=== PATIENT | female | born 2000 | race Caucasian/White ===

== ENCOUNTER 2018-08-13 07:18 | Emergency (ER) | payer SELFPAY ==
[2018-08-13 07:25] VITALS: BP 126/70; PULSE 67; RESP 16; TEMP 37; O2SAT 98
--- NOTE | 2018-08-13 08:10 | W.ED.GENAD ---
Discharge Plan Disposition Patient Disposition: HOME Discharge Details Chief Complaint: DentalOral Clinical Impression: Pain, dental Primary Care Provider: Alda Robin V ED Provider: Sincere Higuera Home Meds and New Rx's Prescriptions: New penicillin V potassium 500 mg tablet 500 mg PO QID Qty: 27 RF: 0 Continue norgestimate-ethinyl estradiol [Sprintec (28)] 1 EACH tablet 1 tab PO DAILY RF: 0 multivitamin 1 EACH capsule 1 cap PO DAILY RF: 0 Discharge Instructions Instructions: Toothache (ED) Additional Instructions: Please take antibiotic as prescribed. Take Tylenol 650 mg every 6 hours as needed for pain You should be seen by a dentist as soon as possible. You may need to have your wisdom teeth removed. Return to the emergency department for any worsening or new concerning symptoms. Stand Alone Forms: Work Release Referrals: Alda Robin MD [Primary Care Provider] - Medical Decision Making 18yo f here with left upper molar and TMJ pain. Suspect impacted wisdom tooth. Plan to treat with penicillin for potential infection. Tylenol for pain. Advised follow-up dentist margarita. HPI General Mode of arrival: ambulatory. Date/Time Provider Initiated Documentation: 08/13/18 07:43. Limitations to Documentation: no limitations. Information obtained by: patient. HPI Narrative: 18-year-old female here with dental pain. Patient notes pain in her left upper molar and face near her TMJ. Pain started 2 months ago. Pain much worse over the past 3 days. No associated fever. She does note that when she lies on that side of her face seems to swell. No associated headache. She is scheduled to see a dentist for wisdom tooth extraction next month. Related Data Home Medications Medication Instructions Recorded Confirmed multivitamin 1 cap PO DAILY 01/12/18 08/13/18 norgestimate-ethinyl estradiol 1 tab PO DAILY 01/12/18 08/13/18 [Sprintec (28)] penicillin V potassium 500 mg PO QID #27 tab 08/13/18 Previous Rx's Medication Instructions Recorded penicillin V potassium 500 mg PO QID #27 tab 08/13/18 Allergies Allergy/AdvReac Type Severity Reaction Status Date / Time ibuprofen AdvReac Unverified 08/13/18 07:29 General Stated Complaint: DentalOral ROCIO: 4 Review of Systems Constitutional Denies fever(s) and Denies headache(s) ENT Reports as per HPI and Denies headache(s) Neurologic Denies headache(s) [facility] Social History Smoking/Tobacco Use Status: Never Exam Const General: healthy appearing and no acute distress Orientation: alert HENMT Ears: external ears normal and TM's normal bilaterally General nose exam: nares normal and no nasal discharge Face and sinus: sinuses nontender Mouth: moist mucous membranes Throat: posterior oropharynx normal Other: Tender left upper molar and posterior lateral to more with no fluctuance; able to open and close jaw with no trismus Neck Neck: no lymphadenopathy Resp Effort & Inspection: normal respiratory effort Cardio Rate: regular rate Rhythm: regular rhythm Heart Sounds: no murmurs Course Vital Signs Temperature 37 C 08/13/18 07:25 Pulse 67 08/13/18 07:25 Respiratory Rate 16 08/13/18 07:25 Blood Pressure 126/70 08/13/18 07:25 Pulse Oximetry 98 08/13/18 07:25 Temperature 37 C 08/13/18 07:25 Temperature Source Skin 08/13/18 07:25 Pulse 67 08/13/18 07:25 Respiratory Rate 16 08/13/18 07:25 Respiratory Effort Non-Labored 08/13/18 07:25 Blood Pressure 126/70 08/13/18 07:25 Blood Pressure Position Sitting 08/13/18 07:25 Pulse Oximetry 98 08/13/18 07:25 Oxygen Delivery Method Room Air 08/13/18 07:25 Oxygen Flow Rate 0 08/13/18 07:25 Pain Level 10 08/13/18 07:25
[2018-08-13] MEDS: Penicillin V POTASSIUM 500 MG TAB PO (08:20)
[2018-08-13] MEDS: Acetaminophen 325 MG TAB 650 MG PO (08:20)
--- NOTE | 2018-08-13 08:23 | ED.GENADUL_ITS ---
Discharge Plan Disposition Patient Disposition: HOME Discharge Details Chief Complaint: DentalOral Clinical Impression: Pain, dental Primary Care Provider: Alda Robin V ED Provider: Sincere Higuera Home Meds and New Rx's Prescriptions: New penicillin V potassium 500 mg tablet 500 mg PO QID Qty: 27 RF: 0 Continue norgestimate-ethinyl estradiol [Sprintec (28)] 1 EACH tablet 1 tab PO DAILY RF: 0 multivitamin 1 EACH capsule 1 cap PO DAILY RF: 0 Discharge Instructions Instructions: Toothache (ED) Additional Instructions: Please take antibiotic as prescribed. Take Tylenol 650 mg every 6 hours as needed for pain You should be seen by a dentist as soon as possible. You may need to have your wisdom teeth removed. Return to the emergency department for any worsening or new concerning symptoms. Stand Alone Forms: Work Release Referrals: Alda Robin MD [Primary Care Provider] - Medical Decision Making 18yo f here with left upper molar and TMJ pain. Suspect impacted wisdom tooth. Plan to treat with penicillin for potential infection. Tylenol for pain. Advised follow-up dentist margarita. HPI General Mode of arrival: ambulatory . Date/Time Provider Initiated Documentation: 08/13/18 07:43 . Limitations to Documentation: no limitations . Information obtained by: patient . HPI Narrative: 18-year-old female here with dental pain. Patient notes pain in her left upper molar and face near her TMJ. Pain started 2 months ago. Pain much worse over the past 3 days. No associated fever. She does note that when she lies on that side of her face seems to swell. No associated headache. She is scheduled to see a dentist for wisdom tooth extraction next month. Related Data Home Medications Medication Instructions Recorded Confirmed multivitamin 1 cap PO DAILY 01/12/18 08/13/18 norgestimate-ethinyl estradiol 1 tab PO DAILY 01/12/18 08/13/18 [Sprintec (28)] penicillin V potassium 500 mg PO QID #27 tab 08/13/18 Previous Rx's Medication Instructions Recorded penicillin V potassium 500 mg PO QID #27 tab 08/13/18 Allergies Allergy/AdvReac Type Severity Reaction Status Date / Time ibuprofen AdvReac Unverified 08/13/18 07:29 General Stated Complaint: DentalOral ROCIO: 4 Review of Systems Constitutional Denies fever(s) and Denies headache(s) ENT Reports as per HPI and Denies headache(s) Neurologic Denies headache(s) [facility] Social History Smoking/Tobacco Use Status: Never Exam Const General: healthy appearing and no acute distress Orientation: alert HENMT Ears: external ears normal and TM's normal bilaterally General nose exam: nares normal and no nasal discharge Face and sinus: sinuses nontender Mouth: moist mucous membranes Throat: posterior oropharynx normal Other: Tender left upper molar and posterior lateral to more with no fluctuance ; able to open and close jaw with no trismus Neck Neck: no lymphadenopathy Resp Effort & Inspection: normal respiratory effort Cardio Rate: regular rate Rhythm: regular rhythm Heart Sounds: no murmurs Course Vital Signs Temperature 37 C 08/13/18 07:25 Pulse 67 08/13/18 07:25 Respiratory Rate 16 08/13/18 07:25 Blood Pressure 126/70 08/13/18 07:25 Pulse Oximetry 98 08/13/18 07:25 Temperature 37 C 08/13/18 07:25 Temperature Source Skin 08/13/18 07:25 Pulse 67 08/13/18 07:25 Respiratory Rate 16 08/13/18 07:25 Respiratory Effort Non-Labored 08/13/18 07:25 Blood Pressure 126/70 08/13/18 07:25 Blood Pressure Position Sitting 08/13/18 07:25 Pulse Oximetry 98 08/13/18 07:25 Oxygen Delivery Method Room Air 08/13/18 07:25 Oxygen Flow Rate 0 08/13/18 07:25 Pain Level 10 08/13/18 07:25
== END 2018-08-13 08:20 | disposition home or self-care (01) ==
PROVIDERS: Emergency Provider Student in an Organized Health Care Education/Training Program; PCP Family Medicine
DX: K08.89 Other specified disorders of teeth and supporting structures (principal)
CPT/HCPCS: 99283

== ENCOUNTER 2020-09-24 04:53 | Outpatient (CLI) | payer OTHER, SELFPAY ==
[2020-09-24 10:50] LABS: Kit/Specimen SENT
[2020-09-24 10:58] LABS: Abs Immature Grans 0.04 10^3/uL (0.0-0.06); Absolute Basophil Count 0.02 10^3/uL (0.0-0.2); Absolute Eosinophil Count 0.07 10^3/uL (0.0-0.7); Absolute Lymphocyte Count 2.67 10^3/uL (1.2-3.4); Absolute Monocyte Count 0.34 10^3/uL (0.1-0.8); Basophils % 0.2; Eosinophils % 0.6; HCT 38.6 % (36.0-46.0); HGB 12.6 g/dL (11.2-15.7); Immature Grans % 0.4; Lymphocytes % 24.3; MCHC 32.6 % (32.0-36.0); MCV 85.8 fL (80-95); Monocytes % 3.1; Neutrophils % 71.4; Nucleated RBC 0 %; Platelet Count 235 10^3/uL (130-400); RDW-SD 40.4 fL
[2020-09-24 11:04] LABS: Glucose,1 Hr (Glucola) 127 mg/dL (80-140)
[2020-09-24 11:08] LABS: Absolute Neutrophil Count 7.85 10^3/uL (1.2-6.7)
[2020-09-24 12:02] LABS: TSH (W/Ref FT4) 1.56 uIU/mL (0.36-3.74)
[2020-09-25 14:19] LABS: Syphilis Total Ab w/Reflex Nonreactive (Nonreactive)
[2020-09-27 10:22] LABS: Varicella IgG Antibody Positive (See Note)
[2020-09-27 10:27] LABS: Rubella IgG Ab (UVM) Positive (See Note)
[2020-09-27 10:44] LABS: HIV-1/2 Ag & Ab Screen Negative (Negative)
[2020-09-27 10:54] LABS: Hepatitis C Ab w Rflx HCV PCR Negative (Negative)
[2020-09-27 13:18] LABS: Hepatitis B Surface Ag Negative (Negative)
[2020-09-30 12:06] LABS: Specimen WB Whole Blood
[2020-10-01 17:11] LABS: Result Summary NEGATIVE; Specimen WB Whole Blood
== END 2020-09-24 05:13 ==
PROVIDERS: PCP Family Medicine; Visit Provider Advanced Practice Midwife
DX: Z34.91 Encounter for supervision of normal pregnancy, unspecified, first trimester (principal); Z11.4 Encounter for screening for human immunodeficiency virus [HIV]; Z11.59 Encounter for screening for other viral diseases; Z01.84 Encounter for antibody response examination
CPT/HCPCS: 36415; 81329; 82950; 86787; 86803; 86850; 86900; 86901; 87340; 87389; 81220; 84443; 85025; 86762; 86780

== ENCOUNTER 2020-09-24 12:29 | Outpatient (REF) | payer OTHER, SELFPAY ==
--- NOTE | 2020-09-24 10:10 | PAPFT_PTH ---
PATIENT: Suyapa Hillman LOC: [facility] U#:[id number] AGE/SX: 20/F ROOM: RE09/24/[address]: Sallie Vizcarra RN : 2000 BED: DIS: 09/24/2020 SPEC #: [id number] RECD: 09/24/20 13:21 STATUS: ANDRES REQ #: [id number] SPIKE: 09/24/20 10:[address]: Sallie Vizcarra DEPT: PENDING SALE TO [facility] Cytology RECD BY: Kim Suarez ENTERED: 09/24/20 13:22 SP TYPE: PAPFT OTHR DR: Alda Robin V Tissues: 1 - CX/ENDOCX FOR PAP SMEARS Procedures: PAP THIN PREP/[facility] Screening Comments: [id number]
[2020-09-24 14:07] LABS: *AMPHETAMINES SCREEN URINE Negative (Negative); *BARBITURATES SCREEN URINE Negative (Negative); *BENZODIAZEPINES SCREEN URINE Negative (Negative); Cannabinoids THC Negative (Negative); Cocaine Screen,Urine Negative (Negative); METHADONE URINE SCREEN Negative (Negative); OPIATES URINE SCREEN Negative (Negative)
[2020-09-24 14:08] LABS: Tricyclic Antidepressants Negative (Negative)
[2020-09-27 15:34] LABS: Chlamydia Result Negative (Negative); GC Result Negative (Negative)
[2020-10-01 17:00] LABS: Buprenorphine Negative; Norbuprenorphine Negative
== END 2020-09-24 12:49 ==
LOC: LBN 12:29
PROVIDERS: PCP Family Medicine; Visit Provider Advanced Practice Midwife
DX: Z34.91 Encounter for supervision of normal pregnancy, unspecified, first trimester (principal); Z11.3 Encounter for screening for infections with a predominantly sexual mode of transmission; Z12.4 Encounter for screening for malignant neoplasm of cervix
CPT/HCPCS: 80307; 87491; 87591; 88142; 87086

== ENCOUNTER 2020-11-15 01:59 | Outpatient (CLI) | payer OTHER, SELFPAY ==
--- NOTE | 2020-11-15 06:45 | DI.US_ITS ---
EXAM: US OB 2-3 TRIMESTER CLINICAL HISTORY: routine pnc,Z34.90. TECHNIQUE: Transabdominal obstetrical ultrasound performed. COMPARISON: No exams were available for comparison FINDINGS: Transabdominal obstetrical ultrasound performed. FINDINGS: Number of fetuses: One. position: Varied positions throughout the examination. heart rate: 144 bpm. Placental grade: 0 Placental location: Posterior. No evidence of previa. BIOMETRIC DATA: BPD: 3.8cm HC: 14.6cm AC: 11.9cm FL: 2.6cm Cisterna Magna: 1.8 mm Cerebellum: 1.76 cm Composite Age: 17 weeks 5 days EDC by US: 04/20/2021 Amniotic fluid index: Amount of fluid is within normal limits. ANATOMICAL SURVEY: Four-chambered heart: Not visualized. LVOT: Not visualized. RVOT: Not visualized. Left-sided stomach: Unremarkable. urinary bladder: Unremarkable. Bilateral kidneys: Unremarkable. Three-vessel cord: Unremarkable. Cord insertion: Unremarkable. Posterior fossa:Not visualized adequately. ventricles: Unremarkable. nose: Not visualized. lips: Not visualized. palate: Unremarkable. spine: Unremarkable. Two arms and two legs: Unremarkable. IMPRESSION: 1. Single live intrauterine gestation as above. 2. anatomic evaluation was limited in part due to patient body habitus. 3. The patient is scheduled to return 11/22/2020 to complete the anatomic evaluation. DATA REPOSITORY:
== END 2020-11-15 02:19 ==
PROVIDERS: PCP Family Medicine; Visit Provider Advanced Practice Midwife
DX: Z34.92 Encounter for supervision of normal pregnancy, unspecified, second trimester (principal)
CPT/HCPCS: 76805

== ENCOUNTER 2020-11-22 01:24 | Outpatient (CLI) | payer OTHER, SELFPAY ==
--- NOTE | 2020-11-22 | DI.US_ITS ---
EXAM: US OB F/U FACIAL/LVOT/RVOT CLINICAL HISTORY: HEART POST FOSSA NOSE LIPS, F/U SURVEY. TECHNIQUE: Transabdominal obstetrical ultrasound performed. COMPARISON: US US OB 2-3 TRIMESTER W MOD from 11/15/2020 FINDINGS: Transabdominal obstetrical ultrasound performed. Examination was limited due to the lie of the fetus . The posterior fossa and cardiac structures were not visualized adequately. The palate was visuali zed and is grossly unremarkable. There is limited visualization of the nose and lips. The fetus is in the cephalic presentation. The placenta is posterior without evidence of previa. Fe lorin heart rate is 153 beats per minute. IMPRESSION: 1. Single live intrauterine gestation as above. 2. The face, heart and posterior fossa could not be evaluated sonographically due to the lie of the fetus. DATA REPOSITORY:
== END 2020-11-22 01:25 | disposition home or self-care (01) ==
LOC: DI 01:24
PROVIDERS: PCP Family Medicine; Visit Provider Advanced Practice Midwife
DX: Z34.92 Encounter for supervision of normal pregnancy, unspecified, second trimester (principal)
CPT/HCPCS: 76815

== ENCOUNTER 2021-01-14 02:03 | Outpatient (CLI) | payer OTHER, SELFPAY ==
[2021-01-14 09:49] LABS: HCT 37.2 % (36.0-46.0); HGB 12.4 g/dL (11.2-15.7); MCH 29.2 pg (27.0-33.0); MCHC 33.3 % (32.0-36.0); MCV 87.5 fL (80-95); MPV 10.3 fL (8.0-11.0); Platelet Count 207 10^3/uL (130-400); RBC 4.25 10^6/uL (3.93-5.22); RDW-SD 44.3 fL
[2021-01-14 09:51] LABS: Glucose,1 Hr (Glucola) 118 mg/dL (80-140)
== END 2021-01-14 02:04 | disposition home or self-care (01) ==
LOC: LBO 02:03
PROVIDERS: PCP Family Medicine; Visit Provider Advanced Practice Midwife
DX: Z34.92 Encounter for supervision of normal pregnancy, unspecified, second trimester (principal)
CPT/HCPCS: 36415; 82950; 85027

== ENCOUNTER 2021-03-21 02:30 | Outpatient (CLI) | payer OTHER, SELFPAY ==
--- NOTE | 2021-03-21 07:00 | DI.US_ITS ---
Exam(s) US OB JESSICA WEIGHT EXAM: US OB JESSICA WEIGHT CLINICAL HISTORY: size larger than dates,[id number]. TECHNIQUE: Transabdominal obstetrical ultrasound performed. COMPARISON: US US OB F/U FACIAL/LVOT/RVOT from 11/22/2020 FINDINGS: Transabdominal obstetrical ultrasound performed. FINDINGS: Number of fetuses: One. position: Cephalic. Placental location: Posterior and fundal. No evidence of previa. BIOMETRIC DATA: BPD: 88 mm = 35 weeks 6 days HC: 332 mm = 37 weeks 2 days AC: 319 mm = 35 weeks 5 days FL: 68 mm = 35 weeks 2 days EFW: 2770 grms 45% Composite Age: 36 weeks EDC: 04/18/2021 Heart Rate: 127BPM Amniotic fluid index: 15 cm. Visually, amount of fluid is within normal limits. IMPRESSION: 1. Single live intrauterine gestation as above. 2. Estimated weight is 2770gms. 3. Amniotic fluid index is 15 cm. Visually within normal limits. DATA REPOSITORY:
== END 2021-03-21 02:50 ==
PROVIDERS: PCP Family Medicine; Visit Provider Advanced Practice Midwife
DX: O36.63X0 Maternal care for excessive fetal growth, third trimester, not applicable or unspecified (principal); Z3A.36 36 weeks gestation of pregnancy
CPT/HCPCS: 76816

== ENCOUNTER 2021-03-25 12:17 | Outpatient (REF) | payer OTHER, MEDICAID, SELFPAY ==
[2021-03-25 14:36] LABS: *AMPHETAMINES SCREEN URINE Negative (Negative); *BARBITURATES SCREEN URINE Negative (Negative); *BENZODIAZEPINES SCREEN URINE Negative (Negative); Cannabinoids THC Negative (Negative); Cocaine Screen,Urine Negative (Negative); METHADONE URINE SCREEN Negative (Negative); OPIATES URINE SCREEN Negative (Negative); Tricyclic Antidepressants Negative (Negative)
[2021-04-01 13:12] LABS: Buprenorphine Negative ng/mL (Cutoff: 5.0); Norbuprenorphine Negative ng/mL (Cutoff: 2.5)
== END 2021-03-25 12:18 | disposition home or self-care (01) ==
LOC: LBN 12:17
PROVIDERS: PCP Family Medicine; Visit Provider Advanced Practice Midwife
DX: Z34.93 Encounter for supervision of normal pregnancy, unspecified, third trimester (principal); Z36.85 Encounter for antenatal screening for Streptococcus B; Z3A.36 36 weeks gestation of pregnancy
CPT/HCPCS: 80307; 87081

== ENCOUNTER 2021-04-14 11:19 | Outpatient (CLI) | payer OTHER, MEDICAID, SELFPAY ==
[2021-04-14 11:33] VITALS: BP 122/64; PULSE 66; TEMP 37.1
--- NOTE | 2021-04-14 12:28 | W.OBNST ---
Date of service: 04/14/21 Time of Service: 12:20 NST Evaluation Reason for NST Reasons for Nonstress Test: DECREASED MOVEMENT Gestational Age Gestational Age in Weeks and Days: 39 Weeks and 3Days Test and Monitor Explained Test/Monitor Explained: Test Explained, Monitor Explained and Patient Verbalized Understanding Vital Signs Blood Pressure: 122/64 Pulse: 66 Temperature: 98.7 F Urine Results Urine Protein: Positive Urine Ketones: Negative Urine Glucose: Negative Urine Blood: Positive NST Information Date on Monitor: 04/14/21 Time on Monitor: 11:28 Date off Monitor: 04/14/21 Time off Monitor: 12:05 Total Time on Monitor: 37 NST Interventions: Reposition Patient NST Evaluation Patient States Movement: Present and Decreased FHR Baseline: 125 Variability: Moderate 6-25 bpm Accelerations: 15x15 Decelerations: None NST Results: Reactive Note NST Note Note: NST is reactive and reassuring, CAT I. Patient is able to feel movement and has no concerns today. Requested VE closed/50/-3 posterior and soft. Discussed that labor will change cervix. movement awareness discussed. RTO 1 week or prn.BRITTANY NST Reviewed and Verified by: Karina Ramos
[2021-04-14 12:30] VITALS: BP 122/64; PULSE 66; TEMP 37.1
== END 2021-04-14 12:10 | disposition home or self-care (01) ==
LOC: BCD 11:24 → OBS 11:31
PROVIDERS: PCP Family Medicine; Visit Provider Advanced Practice Midwife
DX: O36.8130 Decreased fetal movements, third trimester, not applicable or unspecified (principal); Z3A.39 39 weeks gestation of pregnancy
CPT/HCPCS: 59025

== ENCOUNTER 2021-04-20 11:58 | Outpatient (CLI) | payer OTHER, MEDICAID, SELFPAY ==
[2021-04-20 12:15] VITALS: TEMP 36.9
[2021-04-20 12:46] VITALS: BP 113/64; PULSE 71
[2021-04-20 13:30] LABS: ROM Plus Negative
--- NOTE | 2021-04-20 15:59 | W.OBNST ---
Date of service: 04/20/21 Time of Service: 16:00 NST Evaluation Reason for NST Reasons for Nonstress Test: DECREASED MOVEMENT Gestational Age Gestational Age in Weeks and Days: 40 Weeks and 2Days Test and Monitor Explained Test/Monitor Explained: Test Explained, Monitor Explained and Patient Verbalized Understanding Vital Signs Temperature: 98.4 F NST Information Date on Monitor: 04/20/21 Time on Monitor: 12:21 Date off Monitor: 04/20/21 Time off Monitor: 12:47 Total Time on Monitor: 26 NST Interventions: PO Hydration NST Evaluation Patient States Movement: Present Variability: Moderate 6-25 bpm Accelerations: 15x15 Decelerations: None NST Results: Reactive Note NST Note Note: Decreased movement reported at PN visit today with Caryn. She also reported leaking small amounts of watery discharge. ROM plus neg. Fetus is active and reactive NST. SVE attempted but cervix very posterior and patient did not tolerate exam well. Signs of labor reviewed. Instructeions provided to return for NST and JESSICA 04/25/21 NST Reviewed and Verified by: Karina Wren
[2021-04-20 16:02] VITALS: TEMP 36.9
== END 2021-04-20 12:55 | disposition home or self-care (01) ==
LOC: BCD 12:05 → OBS 12:14
PROVIDERS: PCP Family Medicine; Visit Provider Advanced Practice Midwife
DX: O36.8130 Decreased fetal movements, third trimester, not applicable or unspecified (principal); Z3A.40 40 weeks gestation of pregnancy
CPT/HCPCS: 59025; 84112

== ENCOUNTER 2021-04-25 07:48 | Outpatient (CLI) | payer MEDICAID, SELFPAY ==
[2021-04-25 10:50] VITALS: BP 123/73; PULSE 83; TEMP 36.9
[2021-04-25 11:05] VITALS: BP 123/73; PULSE 83
[2021-04-25 12:02] VITALS: BP 123/73; PULSE 83; TEMP 36.9
--- NOTE | 2021-04-25 12:02 | W.OBNST ---
Date of service: 04/25/21 Time of Service: 12:26 NST Evaluation Reason for NST Reasons for Nonstress Test: POSTDATES Gestational Age Gestational Age in Weeks and Days: 41 Weeks and 0Days Test and Monitor Explained Test/Monitor Explained: Test Explained, Monitor Explained and Patient Verbalized Understanding Vital Signs Blood Pressure: 123/73 Pulse: 83 Temperature: 98.4 F NST Information Time on Monitor: 10:52 NST Interventions: PO Hydration and Reposition Patient NST Evaluation Patient States Movement: Present FHR Baseline: 125 Variability: Moderate 6-25 bpm Accelerations: 15x15 Decelerations: None NST Results: Reactive Note JESSICA (cephalic presentation LOP) Results of JESSICA: 8.96 with SDP 3.2, per Ian Horvath CNM NST Note NST Reviewed and Verified by: Caryn Horvath
--- NOTE | 2021-04-25 12:03 | W.OBNST ---
NST Evaluation Reason for NST Reasons for Nonstress Test: POSTDATES Gestational Age Gestational Age in Weeks and Days: 41 Weeks and 0Days Test and Monitor Explained Test/Monitor Explained: Test Explained, Monitor Explained and Patient Verbalized Understanding Vital Signs Blood Pressure: 123/73 Pulse: 83 Temperature: 98.4 F NST Information Date on Monitor: 04/25/21 Time on Monitor: 10:52 NST Interventions: PO Hydration and Reposition Patient NST Evaluation Patient States Movement: Present FHR Baseline: 125 Variability: Moderate 6-25 bpm Accelerations: 15x15 Decelerations: None NST Results: Reactive Note JESSICA Results of JESSICA: JESSICA 8.96 with SDP 3.2, LOP cephalic presentation
--- NOTE | 2021-04-25 12:11 | W.OBNST ---
Date of service: 04/25/21 Time of Service: 12:12 NST Evaluation Reason for NST Reasons for Nonstress Test: POSTDATES Gestational Age Gestational Age in Weeks and Days: 41 Weeks and 0Days Test and Monitor Explained Test/Monitor Explained: Test Explained, Monitor Explained and Patient Verbalized Understanding Vital Signs Blood Pressure: 123/73 Pulse: 83 Temperature: 98.4 F NST Information Date on Monitor: 04/25/21 Time on Monitor: 10:52 NST Interventions: PO Hydration and Reposition Patient NST Evaluation Patient States Movement: Present FHR Baseline: 125 Variability: Moderate 6-25 bpm Accelerations: 15x15 Decelerations: None NST Results: Reactive Note JESSICA (JESSICA performed by Caryn fuller CNM. JESSICA 7 cm) NST Note Note: Post dates . Reactive NST. SVE 1 cm / 25% effaced/-1. thick, white, curdlike discharge note. vaginal pathogen screen sent. Signs of labor reviewed. Consider cervical ripening when patient desires. She will call tomorrow to discuss timing of induction of labor. NST Reviewed and Verified by: Karina Wren
[2021-04-25 12:14] VITALS: BP 123/73; PULSE 83; TEMP 36.9
[2021-04-26 22:29] VITALS: BP 127/78; PULSE 97
== END 2021-04-25 12:30 | disposition home or self-care (01) ==
LOC: BCD 07:51 → OBS 10:41
PROVIDERS: PCP Family Medicine; Visit Provider Advanced Practice Midwife
DX: O48.0 Post-term pregnancy (principal); O23.593 Infection of other part of genital tract in pregnancy, third trimester; B96.89 Other specified bacterial agents as the cause of diseases classified elsewhere; B37.9 Candidiasis, unspecified; Z3A.41 41 weeks gestation of pregnancy
CPT/HCPCS: 59025; 87480; 87510; 87660

== ENCOUNTER 2021-04-26 22:21 | Outpatient (CLI) | payer MEDICAID, SELFPAY ==
[2021-04-26 22:41] VITALS: BP 127/78; PULSE 97; TEMP 36.6
[2021-04-26 22:48] VITALS: BP 127/78; PULSE 97; TEMP 36.6
--- NOTE | 2021-04-27 07:23 | W.OBNST ---
Date of service: 04/26/21 Time of Service: 22:00 NST Evaluation Reason for NST Reasons for Nonstress Test: DECREASED MOVEMENT Gestational Age Gestational Age in Weeks and Days: 41 Weeks and 1Days Test and Monitor Explained Test/Monitor Explained: Test Explained, Monitor Explained and Patient Verbalized Understanding Vital Signs Blood Pressure: 127/78 Pulse: 97 Temperature: 97.9 F Urine Results Urine Protein: Negative Urine Ketones: Negative Urine Glucose: Negative Urine Blood: Negative NST Information Date on Monitor: 04/26/21 Time on Monitor: 22:26 NST Interventions: PO Hydration Contraction Frequency: irreg. contractions x2 NST Evaluation Patient States Movement: Present FHR Baseline: 130 Variability: Moderate 6-25 bpm Accelerations: 15x15 Decelerations: None NST Results: Reactive Note NST Note Note: Suyapa has been experiencing contractions every 5 minutes at home. She felt movement earlier today but has not felt movement in the past two hours. The baby was active dueing NST and she reports that the contractions are now milder. SVE was deferred. Signs of labor reviewed. IOL scheduled for 04/27. NST Reviewed and Verified by: Karina Wren
[2021-04-27 07:26] VITALS: BP 127/78; PULSE 97; TEMP 36.6
== END 2021-04-26 23:28 | disposition home or self-care (01) ==
LOC: BCD 22:22 → OBS 22:25
PROVIDERS: PCP Family Medicine; Visit Provider Advanced Practice Midwife
DX: O36.8130 Decreased fetal movements, third trimester, not applicable or unspecified (principal); Z3A.41 41 weeks gestation of pregnancy
CPT/HCPCS: 59025

== ENCOUNTER 2021-04-27 16:50 | Inpatient (IN) | payer OTHER, MEDICAID, SELFPAY ==
[2021-04-27 17:07] VITALS: BP 124/82; PULSE 86; RESP 22; TEMP 36.5; O2SAT 98
[2021-04-27] MEDS: miSOPROStol 25 MCG TAB 50 MCG VG (18:27)
--- NOTE | 2021-04-27 18:50 | HPE_ITS ---
Date of service: 04/27/21 Time of Service: 18:50 Assessment and Plan Assessment and plan (1) Post-dates : Status: Acute (2) Encounter for induction of labor: Status: Acute Assessment and plan: A: 20 yo G1 @ 41+2 wks GBS+ At risk for SD and PPH d/t elevated BMI, postdates & induction of labor Yoder score 7 Category 1 tracing, JESSICA 2 days ago was 8.9 Currently being treated for BV P: Admit to BC, CBC, T&S, COVID swab Begin cervical ripening protocol, will start with misoprostel 50 mcg vaginally Will initiate PCN prophylaxis for GBS once cervical change is evident R&B of induction discussed w/pt, questions addressed Dr. Walton consulting this evening (3) GBS (group B Streptococcus carrier), +RV culture, currently : Status: Acute OB-HPI Labor/Delivery History of Present Illness Chief Complaint: Scheduled Induction of Labor Indication for Induction: Post Date. CHERY Calculator Estimated Delivery Date Method Current WG Current Estimate 04/18/21 LMP (Certain) 41w 2d Other Estimates 04/23/21 Ultrasound #1 40w 4d History of Present Expected Delivery Route/Plan - CNM FOB/ex-boyfriend - Urbano Isaac (his first child) BG Christianson FOB will be birthing support, possibly also her mother if Urbano is fully va ccinated Would like to use tub for labor and possibly Planning to formula feed GBS positive, plan PCN prophylaxis during labor Specific Issues/Plan 1. BMI > 30 early gct: 127 2. Accepts optional labs consent signed. 2a. SMA and CF carrier negative, [place] result low prob x3, female 3. [place] [facility] [place] placent post, anatomy survey completed & nml 4. Not planning COVID vaccine in ; FOB will be fully vaccinated by CHERY 5. Pt plans to formula feed, declines LC consult 6. Size > dates - US for EFW/JESSICA done 03/21/21: EFW 2770 gms in 45th percentile, JESSICA 15 7. At 36 wk check: pt was aware of recommendation to start low dose ASA but never did. Assessment: History Reviewed & Current Informed Consent Informed Consent: Induction of Labor Review of Systems All systems reviewed & are unremarkable except as noted in HPI and below Cardiovascular Cardiovascular: Reports system reviewed and no additional complaints, except as documented Respiratory Respiratory: Reports system reviewed and no additional complaints, except as documented Gastrointestinal Gastrointestinal: Reports system reviewed and no additional complaints, except as documented Musculoskeletal Musculoskeletal: Reports system reviewed and no additional complaints, except as documented Neurologic Neurologic: Reports system reviewed and no additional complaints, except as documented Psychiatric Psychiatric: Reports system reviewed and no additional complaints, except as documented [facility] Medical History (Updated 04/27/21 @ 18:56 by Caryn Horvath) Lipoma of left heel removed as child . Open fracture of right wrist Family History (Updated 09/24/20 @ 09:04 by Sallie Vizcarra CNM) Mother Ulcerative colitis Brother Depression Social History Smoking/Tobacco Use Status: Never Smoking risk assessment performed?: Yes Alcohol Intake: former Drug use: Never Substance use type: does not use Do you feel safe at home: Yes Do you feel safe in your relationship?: Yes Female Reproductive History Menstrual control method: none History History 1 Para 0 Hx # Term Pregnancies 0 Multiple births 0 Hx # Pregnancies 0 Ectopic pregnancies 0 AB induced 0 Hx Number of Living Children 0 AB spontaneous 0 Meds Allergies and Home Medications Allergies Allergy/AdvReac Type Severity Reaction Status Date / Time ibuprofen AdvReac Intermediate hallucinations, Verified 04/20/21 11:30 cold sweats and numbness of hands Home Medications Medication Instructions Recorded Confirmed Type prenat.vits,patricio,cxi-otky-maosq 1 tab PO DAILY 08/23/20 04/27/21 History metronidazole 500 mg tablet 500 mg PO BID #14 tab 04/26/21 04/27/21 Rx terconazole 0.4 % vaginal cream 1 appful VAGINAL QHS 7 Days #45 g 04/26/21 04/27/21 Rx Exam Physical Exam Vital signs: Temp Pulse Resp BP Pulse Ox 97.7 F 86 22 124/82 98 04/27/21 17:07 04/27/21 17:07 04/27/21 17:07 04/27/21 17:07 04/27/21 17:07 Vital Signs Reviewed: Yes Constitutional Constitutional: no acute distress Detailed Labor and Delivery Exam Dilation: 1.5 Effacement (%): 75 station: -3 Cervix position: anterior Consistency: soft YODER Score(Cervical Ripeness Score): 7 Amniotic Membrane Status: Intact Monitor Mode: External Contraction Frequency(min): irregular Contraction Duration(sec): 30-50 Contraction Intensity: Mild Fetus A Heart Rate Baseline: 140 Monitor Accelerations: 15 X 15 Monitor Decelerations: None Variability: Moderate (6-25 BPM) Presentation: Cephalic Categories: Category I Est. Weight: 8 lb 9.568 oz Est. Weight: 3900 gms HEENT Exam HEENT Exam: Normal Neck Exam Neck Exam: Normal Chest/Brest/Axilla Exam Chest Exam: Normal Breast Exam Breast Exam: Not Done Respiratory Exam Respiratory Exam: Normal Cardiovascular Exam Cardiovascular Exam: Normal Abdominal Exam Abdominal Exam: Normal (Gravid) Rectal Exam Rectal Exam: Not Done Exam Exam: Normal Extremities Exam Extremities Exam: Normal Back/Spine/Pelvis Exam Back Exam: Normal Pelvis Adequate: Yes Skin Exam Skin Exam: Normal Neurological Exam Neurological Exam: Normal Psychiatric Exam Psychiatric Exam: Normal Results Results Group Beta Strep: Positive Blood Type: B+ Rubella Status: Immune Varicella Immunity: Immune Risk Assessment Risk for Shoulder Dystocia Historical/Initial OB: POSITIVE FOR: Pre- BMI>30; NEGATIVE FOR: Pelvic Abnormality, Previous Shoulder Dystocia or Previous Macrosomia 40 Weeks: POSTIVE FOR: Post Dates; NEGATIVE FOR: EFW> 4500 gms or Maternal Weight Gain >40lb Increased Risk?: Yes Counselin09/24/20 @ iob reviewed wt gain. al Delivery Plan @ 36wks: EFW @ 36 wks in 45th percentile Delivery Plan @ 40 wks: IOL after 41 wks, Risk for Pre-Eclampsia Daily Dose ASA Indicated: Yes Date Initiated/Initials: 09/24/20 accepts l/d asa. al 03/25: pt never began taking low dose ASA. Yes, if one or more: NEGATIVE FOR: Hx Pre-E/Gest HTN, Chronic HTN, Multiple Gestation, Pre-gestational DM, Renal Disease, Systemic Lupus or APA Syndrome Yes, if 2 or more: POSITIVE FOR: Nulliparity and BMI>30; NEGATIVE FOR: Age>= 35 yrs, >10yr btwn pregnancies, ethinicty, Mother/Sister w/ Pre-E or Previous IUGR Risk for Post- Hemorrhage Initial: NEGATIVE FOR: Multiple Gestation, Previous PPH, Known Clotting Deficiency, Grand Multiparity or Anticoagulation At Risk?: Yes Counseled re: Active Management: Yes Date/Initials: increased risk d/t induction of labor, will address risk at delivery Risks Reviewed Risks Reviewed Upon Admission: Yes
[2021-04-27 19:11] LABS: HCT 35.9 % (36.0-46.0); HGB 12.1 g/dL (11.2-15.7); MCH 29.8 pg (27.0-33.0); MCHC 33.7 % (32.0-36.0); MCV 88.4 fL (80-95); MPV 10.1 fL (8.0-11.0); Platelet Count 213 10^3/uL (130-400); RBC 4.06 10^6/uL (3.93-5.22); RDW 13.8 % (11.7-14.6); WBC 13.49 10^3/uL (4.4-10.8)
[2021-04-27] MEDS: metroNIDAZOLE 500 MG TAB PO (19:27)
[2021-04-27 20:29] LABS: Source Nasal/Nares
[2021-04-27 21:20] LABS: COVID-19 PCR Negative (Negative)
[2021-04-27 22:23] VITALS: BP 120/71; PULSE 77; RESP 18; TEMP 36.8
--- NOTE | 2021-04-27 23:03 | W.PM.OBNL1 ---
Date of service: 04/27/21 Time of Service: 23:03 Pelvic Exam Comments: cvx unchanged from initial exam Contractions Monitor Mode: External Contraction Frequency(min): uterine irritability Intensity: Mild Fetus A Monitor: External (US) Heart Rate Baseline: 135 Variability: Moderate (6-25 BPM) Categories: Category I Accelerations: 15 X 15 Decelerations: None Amniotic Membrane Status: Intact Assessment and Plan Assessment and plan (1) Encounter for induction of labor: Status: Acute Assessment and plan: A: IOL in progress for postdates P: Pereyra bulb inserted without difficulty 2nd dose of misoprostel 50 mcg given PO Encourage rest AMAP IV access has been established Ambien sleep aid prn tonight Objective Abnormal lab results 04/27/21 Range/Units 19:00 WBC 13.49 H (4.4-10.8) 10^3/uL Hct 35.9 L (36.0-46.0) % Temp Pulse Resp BP Pulse Ox 97.7 F 77 22 120/71 98 04/27/21 17:07 04/27/21 22:23 04/27/21 17:07 04/27/21 22:23 04/27/21 17:07 Laboratory Results WBC 13.49 10^3/uL (4.4-10.8) H 04/27/21 19:00 RBC 4.06 10^6/uL (3.93-5.22) 04/27/21 19:00 Hgb 12.1 g/dL (11.2-15.7) 04/27/21 19:00 Hct 35.9 % (36.0-46.0) L 04/27/21 19:00 MCV 88.4 fL (80-95) 04/27/21 19:00 MCH 29.8 pg (27.0-33.0) 04/27/21 19:00 MCHC 33.7 % (32.0-36.0) 04/27/21 19:00 RDW 13.8 % (11.7-14.6) 04/27/21 19:00 Plt Count 213 10^3/uL (130-400) 04/27/21 19:00 MPV 10.1 fL (8.0-11.0) 04/27/21 19:00 COVID-19 Source Nasal/Nares 04/27/21 20:00 SARS-CoV-2 (PCR) Negative (Negative) 04/27/21 20:00 Patient ABO/Rh B Positive 04/27/21 19:00 Antibody Screen NEGATIVE 04/27/21 19:00 Vital Signs Reviewed: Yes Objective Narrative Objective Narrative: Pt has ambulated, used physioball Normotensive, afebrile Cvx unchanged Category 1 tracing Pt desires to continue with cervical ripening through the night Subjective Interval history since last seen: Has felt increased cramping since receiving first dose of vaginal miso. Pt's mother has arrived to spend the night with her for support. Options for the night reviewed with pt, pt opts for pereyra balloon insertion and requests second dose of miso. Results Abnormal Lab Findings: Procedure Procedures: Cervical Ripening Cervical Ripening: Pereyra Bulb and Misoprostol
[2021-04-27] MEDS: miSOPROStol 50 MCG TAB PO (23:24)
[2021-04-28] VITALS (31 sets, daily range): BP systolic 97–135; BP diastolic 53–86; PULSE 53–97; RESP 16–18; TEMP 36.5–38.1; O2SAT 97–100; BMI 39.7
[2021-04-28] MEDS: Lactated Ringers 1,000 ML 125 ML IV ×2 (00:55→08:45)
[2021-04-28] MEDS: Penicillin G POT. 5,000,000 UNITS in Normal Saline 100 ML 200 UNITS IVPB (01:00)
--- NOTE | 2021-04-28 04:39 | W.PM.OBNL1 ---
Date of service: 04/28/21 Time of Service: 04:39 Pelvic Exam Dilation: 5 Effacement (%): 70 station: -3 Vaginal Exam Presentation: Cephalic Contractions Monitor Mode: Palpation Contraction Frequency(min): irregular q2-4, toco tracing poorly Contraction Duration(sec): 20 - 60 Intensity: Moderate Fetus A Monitor: External (US) Heart Rate Baseline: 140 Presentation: Cephalic Variability: Moderate (6-25 BPM) Categories: Category I Decelerations: None Amniotic Membrane Status: Intact Assessment Note: Intermittent auscultation for 2 hrs, then EFM applied. [place] not tracing well, membranes intact with vtx -3, uterine palpation and observation of pt to time contractions reveals 20-50 second cntrx q 2-4 minutes. Assessment and Plan Assessment and plan (1) Encounter for induction of labor: Status: Acute Assessment and plan: A: Cervical ripening completed Active labor @ 5 /70%, intact membranes No descent as of yet Category 1 tracing after 500 ml IVF bolus PCN dose #2 infusing now P: Cont intermittent auscultation while pt is up/active Comfort measures as pt requests IVF @ 125 ml/hr for hydration Monitor for labor progression Objective Vital Signs Reviewed: Yes Objective Narrative Objective Narrative: Pt vomited 1 hr after PO miso dose & expelled pereyra Discomfort increased, began using nitrous and ambulating/showering Periodic vomiting has persisted EFM applied after 2 hr intermittent auscultation Minimal variability noted, 500 ml IVF bolus given, moderate variability returned [place] tracing poorly and not reflecting uterine activity Abd palp and pt observation reveals irregular frequent and short contrx which spaced somewhat after IVF bolus Normotensive and afebrile PCN prophylaxis for GBS begun Discussed w/pt pain management options including IV analgesia and regional anesthesia Subjective Interval history since last seen: Feeling pelvic pressure and lower abd pain fairly constantly, general abd tightenings that come and go are irregular, short but frequent. Vomiting periodically. Prefers to be on her feet, in the shower or moving about the room. Was using nitrous was initially helpful but seems to make her nausea worse.
[2021-04-28] MEDS: Penicillin G POT. 3,000,000 UNITS in Normal Saline 50 ML 100 UNITS IVPB ×3 (05:00→14:09)
[2021-04-28] MEDS: Ondansetron 4 MG/2 ML VIAL IVP (06:22)
--- NOTE | 2021-04-28 07:31 | W.PM.OBNL1 ---
Date of service: 04/28/21 Time of Service: 07:31 Informed Consent Informed Consent: Regional Anesthesia and Risk,Benefits,Alternatives Discussed Fetus A Amniotic Membrane Status: Intact Assessment and Plan Assessment and plan (1) Encounter for induction of labor: Status: Acute Assessment and plan: A: pt requests epidural inadequate labor pattern P: pitocin augmentation after epidural in place Dr. Hernandez consulting today Objective Vital Signs Reviewed: Yes Objective Narrative Objective Narrative: using physioball, shower and tub for labor EFM tracing obtained at onset of day shift remains category 1 pt appears more relaxed then during the night, breathing thru contrx vss, pelvic exam deferred for now Subjective Interval history since last seen: States she feels her contractions have nearly gone away and are not as strong as they were, she desires epidural anesthesia prior to beginning pitocin augmentation. Interventions Pain Management Interventions: Comfort Measures, Epidural and Nitrous Oxide , used nitrous after 2nd misoprostel dose to fair effect . Results Abnormal Lab Findings:
--- NOTE | 2021-04-28 07:32 | W.ANESPRE ---
General Info Date of Service Date Performed: 04/28/21 Height: 6 ft Weight: 133.073 kg Body Mass Index (BMI): 39.7 Meds Allergies and Home Medications Allergies Allergy/AdvReac Type Severity Reaction Status Date / Time ibuprofen AdvReac Intermediate hallucinations, Verified 04/20/21 11:30 cold sweats and numbness of hands Home Medication Medication Instructions Recorded prenat.vits,patricio,[id number] 1 tab PO DAILY 08/23/20 metronidazole 500 mg tablet 500 mg PO BID #14 tab 04/26/21 terconazole 0.4 % vaginal cream 1 appful VAGINAL QHS 7 Days #45 g 04/26/21 Current Visit Medications: Current Medications Generic Name Dose Route Start Last Admin Trade Name Freq PRN Reason Stop Dose Admin Ringer's Solution 1,000 mls @ 125 mls/hr 04/28/21 00:45 04/28/21 04:30 IV 125 mls/hr INFUSION DAIN Infusion Penicillin G Potassium 3,000, 50 mls @ 100 mls/hr 04/28/21 05:00 04/28/21 05:30 000 units/ Sodium Chloride IVPB Infused Q4H DANI Infusion Sodium Chloride 500 mls @ 0 mls/hr 04/28/21 00:46 Saline 500ml Bag IV PRN PRN As Directed IV Miscellaneous Supplies 1 each 04/28/21 01:00 Iv Access IV DIRECTED DAIN Ondansetron HCl 4 mg 04/28/21 06:07 04/28/21 06:22 Ondansetron 4 Mg/2 Ml Vial IVP 4 mg Q4H PRN PRN Administration Sodium Chloride 0 ml 04/28/21 00:46 Normal Saline Flush 10 Ml Syr IVP PRN PRN Terbutaline Sulfate 0.25 mg 04/27/21 16:29 Terbutaline 1 Mg/Ml Vial SC PRN PRN PFSH Active Problems Active Problems: Problem Status Onset Code Encounter for induction of labor Z34.90 Post-dates O48.0 GBS (group B Streptococcus carrier), +RV culture, currently O99.820 Large for dates affecting management of mother O36.60X0 BMI greater than 30 Z34.90 Medical History Medical History (Updated 04/27/21 @ 18:56 by Caryn Horvath) Lipoma of left heel removed as child . Open fracture of right wrist Tobacco Smoking/Tobacco Use Status: Never Alcohol Alcohol Intake: former Substance Use Substance use: Never Substance use type: does not use Prental History History 1 Para 0 Hx # Term Pregnancies 0 Multiple births 0 Hx # Pregnancies 0 Ectopic pregnancies 0 AB induced 0 Hx Number of Living Children 0 AB spontaneous 0 Vital Signs and Lab Results Vital Signs Most Recent Vital Signs in EMR: Most Recent Vital Signs Temp Pulse Resp BP Pulse Ox 36.8 C 66 18 110/57 L 98 04/27/21 22:23 04/28/21 03:35 04/27/21 22:23 04/28/21 03:35 04/27/21 17:07 Lab Results Result Diagrams: 04/27/21 19:00 Blood Type / Crossmatch: Patient ABO/Rh B Positive 04/27/21 19:00 04/27/21 Antibody Screen NEGATIVE 04/27/21 19:00 04/27/21 Complete Blood Count: White Blood Count 13.49 10^3/uL (4.4-10.8) H 04/27/21 19:00 04/27/21 Red Blood Count 4.06 10^6/uL (3.93-5.22) 04/27/21 19:00 04/27/21 Hemoglobin 12.1 g/dL (11.2-15.7) 04/27/21 19:00 04/27/21 Hematocrit 35.9 % (36.0-46.0) L 04/27/21 19:00 04/27/21 Platelet Count 213 10^3/uL (130-400) 04/27/21 19:00 04/27/21 Complete Metabolic Panel: No Data to Display Liver Function Panel: No Data to Display Coagulation Panel: No Data to Display Cardiac Panel: No Data to Display Arterial Blood Gas: No Data to Display Venous Blood Gas: No Data to Display Pancreas Panel: No Data to Display Thyroid Panel: No Data to Display Infectious Disease: Coronavirus (COVID-19)(PCR) Negative (Negative) 04/27/21 20:00 04/27/21 Coronavirus 2019 Source Nasal/Nares 04/27/21 20:00 04/27/21 Blood Cultures: No Data to Display Toxicology Panel: No Data to Display Panel: No Data to Display Anesthesia Assessment and Plan Anesthesia History Personal History: No History of Anesthesia Complications Family History: No Family History of Anesthesia Complications Exercise Tolerance Exercise Tolerance: Metabolic Equivalents>4 Pertinent Negatives Pertinent Negatives: No Symptoms of GERD, No Major Cardiovascular Symptoms or Complaints, No Major Pulmonary Symptoms or Complaints and No History of CVA/TIA Cardiac & Pulmonary Exam Cardiac Exam: Normal S1/S2 Heart Sounds Pulmonary Exam: Clear Bilateral Breath Sounds Airway Exam Known Difficult Airway: No Mallampati Class: 2 Mouth Opening: Normal (> 3cm) Thyromental Distance: Greater than 3 cm Neck Range of Motion: Full ROM Neck Circumference: Normal Teeth Condition: Normal Dentition ASA Classification ASA Score: ASA 2 Emergency Case?: No NPO Status NPO Status: NPO Clears >2 hours, Solids >8 hours Status Status: Confirmed Anesthesia Plan Resuscitation Status: Full Code Anesthesia Technique: Epidural Anesthesia Airway Planned: Natural Airway Pain Management: Epidural Monitors Used: Standard Monitors
[2021-04-28] MEDS: Lactated Ringers 500 ML IV ×2 (07:44→11:57)
--- NOTE | 2021-04-28 08:30 | W.ANESNEU ---
Epidural/Spinal Catheter Date Performed: 04/28/21 Procedure Start: 07:55 Procedure Stop: 08:28 Requesting Provider: Caryn Horvath Procedure Location: Obstetrics Reason Performed: Labor Epidural Standard Monitors Applied: ECG, Blood Pressure, SpO2 and See EMR for corresponding vital signs Patient Position: Sitting Sedation Given (Indicate Dose Given): No Sedation given Patient Mental Status: Awake Sterility: Hand Hygiene, Surgical Cap, Surgical Mask, Sterile Gloves, Sterile Drape/Sheet and Chlorhexidine Procedure Location: L2-L3 Interspace Epidural Needle: Tuohy 18 Gauge Needle Length: 3.5 Inch Needle Approach: Midline Epidural Procedure: Skin Prepped, Sterile Drape Placed, 1% Lidocaine to skin and subcutaneous tissue with 25G needle, Tuohy Needle placed, MAYDA to Saline Used, Epidural Catheter Placed and Tuohy Needle Removed Catheter Placed?: Catheter Placed Test Dose (Indicate Dose Given): 3ml 1.5% Lidocaine with 1:200K Epinephrine Given and Negative Test Dose Loss of Resistance Depth (cm): 9 Catheter depth at skin (cm): 14 Dressing: Tegaderm Applied, Mastisol Used and Dressing reinforced with Tape Epidural Provider Bolus (Indicate Dose Given): Total bolus dose given in 3-5 ml divided doses and Total Bupivacaine 0.25% Given (ml) Dose:: 6mL Additives (Indicate Dose Given ): Fentanyl PF Dose:: 100 mcg Infusion Medication: Medication Infusion Began Medication Infusion: Ropivacaine 0.1% with Fentanyl 2mcg/ml Maintenance Infusion Rate (ml/hour): 10 PCEA Bolus Dose (ml): 5 Block Level: N/A Paresthesia: None Ultrasound: Not Used Number of Attempts (See previous attempts in note section): 3 Procedure Tolerated: No Complications and Patient tolerated well Procedure Outcome: Successful Procedure Comment:: 2 attempts by juana, srna bone contacted, unable to access epidual space. yair canas successful on subsequent attempt Performed By: Ludmila Kent
--- NOTE | 2021-04-28 08:52 | W.PM.OBNL1 ---
Date of service: 04/28/21 Time of Service: 08:52 Informed Consent Informed Consent: Augmentation of Labor Pelvic Exam Dilation: 5.5 Effacement (%): 90 station: -3 Consistency: soft Comments: large forebag palpable Contractions Monitor Mode: External Contraction Frequency(min): doubling every 5 minutes Intensity: Mild/Moderate Fetus A Monitor: External (US) Heart Rate Baseline: 135 Variability: Moderate (6-25 BPM) Categories: Category I Accelerations: 15 X 15 Decelerations: None Amniotic Membrane Status: Intact Assessment and Plan Assessment and plan (1) Encounter for induction of labor: Status: Acute Assessment and plan: A: epidural effective inadequate labor P: Discussed pt status and reviewed tracing with Dr. Hernandez Begin Pitocin augmentation Objective Vital Signs Reviewed: Yes Subjective Interval history since last seen: Epidural is working well, may be able to take a nap Interventions Augmentation , Pitocin rate (mU/min): 2
[2021-04-28] MEDS: Oxytocin/Normal Saline 30 UNIT/500 ML BAG 2 UNITS IV (09:25)
--- NOTE | 2021-04-28 10:40 | W.PM.OBNL1 ---
Date of service: 04/28/21 Time of Service: 10:30 Informed Consent Informed Consent: Other (AROM, internal monitors) Pelvic Exam Dilation: 5 Effacement (%): 100 station: -3 Contractions Monitor Mode: Internal Contraction Frequency(min): doubling every 3-4 Intensity: Moderate/Strong Fetus A Monitor: Internal (FSE) Heart Rate Baseline: 130 Presentation: Cephalic Variability: Moderate (6-25 BPM) Categories: Category I Accelerations: Present Decelerations: Early Amniotic Membrane Status: Ruptured Rupture Method: Artifical Amniotic Fluid: Clear Amount: moderate Date of Membrane Rupture: 04/28/21 Time of Membrane Rupture: 10:04 Assessment and Plan Assessment and plan (1) Encounter for induction of labor: Status: Acute Assessment and plan: A: AROM for clear fluid and insertion of internal monitors Dr. Hernandez present for procedure d/t high station of head P: Pit @ 2 mu; titrate with MVU calculation Difficulty with readable tracing expected to improve with IUPC/FSE Observe for descent and progressive dilation Subjective Interval history since last seen: Comfortable, dozing. Procedure Procedures: Scalp Electrode Placement , indication for electrode: question of decelerations / IUPC Insertion , indication for IUPC: unreliable toco tracing
--- NOTE | 2021-04-28 14:14 | W.PM.OBNL1 ---
Date of service: 04/28/21 Time of Service: 14:14 Pelvic Exam Dilation: 10 station: -2 Vaginal Exam Presentation: Cephalic Contractions Monitor Mode: External Contraction Frequency(min): every 1-3 minutes Contraction Duration(sec): 60 Intensity: Moderate/Strong Fetus A Monitor: External (US) Heart Rate Baseline: 125 Presentation: Cephalic Variability: Moderate (6-25 BPM) Categories: Category I Accelerations: 15 X 15 Decelerations: Early Amniotic Membrane Status: Ruptured Assessment Note: scalp stim done with reassuring reactivity Assessment and Plan Assessment and plan (1) Encounter for induction of labor: Status: Acute Assessment and plan: A: beginning second stage labor category 1 tracing epidural with pitocin augmentation adequate GBS prophylaxis P: maternal position changes to encourage further rotation/descent 500 ml LR bolus for hydration initiate coached maternal pushing after further passive descent Dr. Hernandez updated on pt progress Objective Pitocin slowly increased to 7 mu/min contraction pattern & uterine resting tone has been erratic per IUPC MVU's run 100-[address] Hernandez, remains category 1 SVE @ 1555 for full dilation and descent to -2 Straight cath'ed for 50 ml concentrated urine 4th dose of PCN infusing now Subjective Interval history since last seen: Epidural working well, though feels increasing vaginal discomfort.
--- NOTE | 2021-04-28 15:19 | W.PM.OBNL1 ---
Date of service: 04/28/21 Time of Service: 15:19 Informed Consent Informed Consent: Other (AROM, internal monitors) Objective Abnormal lab results 04/27/21 Range/Units 19:00 WBC 13.49 H (4.4-10.8) 10^3/uL Hct 35.9 L (36.0-46.0) % Temp Pulse Resp BP Pulse Ox 98.2 F 76 16 134/63 99 04/28/21 14:51 04/28/21 14:51 04/28/21 12:45 04/28/21 14:51 04/28/21 08:15 Laboratory Results WBC 13.49 10^3/uL (4.4-10.8) H 04/27/21 19:00 RBC 4.06 10^6/uL (3.93-5.22) 04/27/21 19:00 Hgb 12.1 g/dL (11.2-15.7) 04/27/21 19:00 Hct 35.9 % (36.0-46.0) L 04/27/21 19:00 MCV 88.4 fL (80-95) 04/27/21 19:00 MCH 29.8 pg (27.0-33.0) 04/27/21 19:00 MCHC 33.7 % (32.0-36.0) 04/27/21 19:00 RDW 13.8 % (11.7-14.6) 04/27/21 19:00 Plt Count 213 10^3/uL (130-400) 04/27/21 19:00 MPV 10.1 fL (8.0-11.0) 04/27/21 19:00 COVID-19 Source Nasal/Nares 04/27/21 20:00 SARS-CoV-2 (PCR) Negative (Negative) 04/27/21 20:00 Patient ABO/Rh B Positive 04/27/21 19:00 Antibody Screen NEGATIVE 04/27/21 19:00 Results Hemoglobin/Hematocrit: Hgb 12.1 g/dL (11.2-15.7) 04/27/21 19:00 Hct 35.9 % (36.0-46.0) L 04/27/21 19:00 Abnormal Lab Findings: Abnormal Labs 04/27/21 19:00 WBC 13.49 H Hct 35.9 L
[2021-04-28] MEDS: miSOPROStol 200 MCG TAB 600 MCG PO (15:30)
[2021-04-28] MEDS: Methylergonovine 0.2 MG/ML VIAL (15:35)
[2021-04-28] MEDS: Oxytocin 10 UNITS/ML VIAL IM (15:50)
[2021-04-28] MEDS: miSOPROStol 100 MCG TAB 200 MCG PO (16:19)
--- NOTE | 2021-04-28 16:35 | OBVDS_ITS ---
Date of service: 04/28/21 Time of Service: 16:35 OB Labor/ Delivery Information Baby A Delivery Delivery Method: Spontaneaous Presentation: Cephalic Cephalic Position: Vertex Vertex Position: Left Occipital Anterior Breech Position: N/A Cord Description-Baby A: 3 Vessels Cord Description Comment: ecentric cord insertion Amniotic Fluid: Clear Estimated Blood Loss: 450 Delivery Outcome: Liveborn Transferred: Remains with Mother Note: Full dilation identified at 1555, passive descent encouraged with pitocin augmentation in progress, pt reported rectal pressure and the urge to push @ 1435, 2nd stage huddle completed and FOB arrived, category 1 tracing noted, excellent maternal efforts under epidural anesthesia resulting in over intact perineum of a vigorous female , shoulders came easily in oblique position, bulb suction to clear copious mucous from mouth and nose then infant to mother's arms. Pitocin IV bolus begun, cord ceased pulsating and was clamped then cut by pt's mother, cord blood collected and [place] placenta delivered intact with 3VC. Initially rapid vaginal bleeding noted, controlled with fundal massage, manual evacuation of clots from lower uterine segment and cervical os done for an EBL of 450 ml. Methergine 0.2 IM and misoprostel 800 mcg PO given, trickling continued for several minutes, pitocin 10 units IM administered. Fundus firmed and remained firm, 1 stitch of 3.0 Vicryl placed to vaginal floor laceration. Family bonding was observed. Apgars 9/9, wt 3930 gms. Providers Nurse Quality Assurance Analyst: Caryn Horvath Nurse: Marguerite James Nurse: Brando Gaines Labor/Delivery Information Number of Babies in Womb: 1 Group Beta Strep: Positive Antibiotics Administered: Yes Number of Doses of Antibiotics: 4 Rubella Status: Immune Blood Type: B+ Varicella Immunity: Immune Maternal Complications: None Shoulder Dystocia: No Stages of Labor Complete Dilatation Date: 04/28/21 Complete Dilatation Time: 14:11 ROM Baby A: 04/28/21 ROM Baby A: 10:04 ROM Total Time- Baby A: [id number] Delivery Date-Baby A: 04/28/21 Infant Delivery Time-Baby A: 15:22 Labor Stage 2 Duration: 1 hours and 11 minutes Placenta Delivery Date-Baby A: 04/28/21 Placenta Delivery Time-Baby A: 15:29 Labor-Stage 3 Duration: 7 minutes Placenta Status: Delivered Baby A Gender: Female Gestational Status: Term (39-41.6 wks) Gestational Age in Weeks/Days: 41 Weeks and 3 Days weight: 8 lb 10.627 oz Weight Comment: 3900 gms Score-1 Minute Interval(Baby A) Heart Rate-1 minute: 100 BPM or Greater Respiratory Effort- 1 minute: Spontaneous/Strong Cry Muscle Tone-1 minute: Active Movement Reflex Response-1 minute: Prompt Response Color-1 minute: Bluish Hands or Feet Score-5 Minute Interval(Baby A) Heart Rate- 5 minute: 100 BPM or Greater Respiratory Effort-5 minute: Spontaneous/Strong Cry Muscle Tone-5 minute: Active Movement Reflex Response-5 minute: Prompt Response Color-5 minute: Bluish Hands or Feet Total Score- 5 minute: 9 Procedure Procedures: Cord Blood Collection Interventions Repair of Laceration Type: Other (vaginal floor) , Sponge Count Correct: No Sponges Placed in Vagina , Sharp Count Correct: Yes . Laceration Repair Note: 1 deep interrupted of 3.0 Vicryl placed in vaginal floor lac
[2021-04-28] MEDS: Acetaminophen 325 MG TAB 650 MG PO (18:16)
[2021-04-29 02:00] VITALS: BP 92/58; PULSE 99; RESP 18; TEMP 36.9
[2021-04-29 06:51] LABS: HCT 30.6 % (36.0-46.0); HGB 10.1 g/dL (11.2-15.7); MCH 29.5 pg (27.0-33.0); MCV 89.5 fL (80-95); MPV 10.1 fL (8.0-11.0); Platelet Count 175 10^3/uL (130-400); RBC 3.42 10^6/uL (3.93-5.22); RDW-SD 45.3 fL; WBC 16.05 10^3/uL (4.4-10.8)
[2021-04-29] MEDS: Acetaminophen 325 MG TAB 650 MG PO (09:03)
[2021-04-29 09:12] VITALS: BP 115/73; PULSE 82; RESP 16; TEMP 36.4; O2SAT 97
--- NOTE | 2021-04-29 10:07 | W.PM.OBPNV1 ---
Date of service: 04/29/21 Time of Service: 10:07 Assessment and Plan Assessment and plan (1) Term delivered: Status: Acute Assessment and plan: A: PPD#1 Nml recovery, satisfied with experience Desires discharge at 24 hrs Pt relates hx of depression not previously disclosed; @ risk for PPD P: Has taken citalopram in the past with good effect Has therapist at [facility], encouraged to make appt for next week or so To call if desires to resume SSRI to decrease risk of PPD Sx of PPD reviewed Has good support from her mother and other family Will review & give written PP instructions Plan discharge when baby is released Plans OC's as BCM, to start after 1 month PP F/up appt's @ 2 & 6 wks PP Subjective Subjective Patient comments: Pain well controlled, Tolerating diet and Flatus present [place] baby status: Doing well, Bottle feeding well, Rooming in and Strong Bonding Observed feeding status: Exclusively formula feeding Exam Physical Exam Vital signs: Temp Pulse Resp BP Pulse Ox 97.5 F L 82 16 115/73 97 04/29/21 09:12 04/29/21 09:12 04/29/21 09:12 04/29/21 09:12 04/29/21 09:12 Vital Signs Reviewed: Yes Constitutional Constitutional: no acute distress HEENT Exam HEENT Exam: Normal Neck Exam Neck Exam: Normal Breast Exam Bilateral: Breast Exam: Normal and Soft Nipple Exam: Normal Respiratory Exam Respiratory Exam: Normal Cardiovascular Exam Cardiovascular Exam: Normal Abdominal Exam Abdomen: Other Comments: soft, nontender, obese Fundal Exam Fundus: Below Umbilicus and Firm Rectal Exam Rectal Exam: Normal Exam Perineum: Intact and Normal Extremities Exam Extremity Exam: Normal Back/Spine/Pelvis Exam Back Exam: Normal Skin Exam Skin Exam: Normal Neurological Exam Neurological Exam: Normal Psychiatric Exam Psychiatric Exam: Normal (pt relates hx of depression but denies depression today) Results Hemoglobin/Hematocrit: Hgb 10.1 g/dL (11.2-15.7) L 04/29/21 06:16 Hct 30.6 % (36.0-46.0) L 04/29/21 06:16 Abnormal Lab Findings: Abnormal Labs 04/27/21 04/29/21 19:00 06:16 WBC 13.49 H 16.05 H RBC 3.42 L Hgb 10.1 L Hct 35.9 L 30.6 L
--- NOTE | 2021-04-29 17:11 | W.PM.OBDISCH ---
Date of service: 04/29/21 Time of Service: 17:11 DS: Diagnosis Discharge Diagnosis (1) Term delivered: Status: Acute Discharge Plan Disposition Patient Disposition: HOME Condition: Good Discharge Details Reason For Visit: POSTDATES Admit Date/Time: 04/27/21 16:50 Admit Provider: Caryn Horvath Attending Provider: Caryn Horvath Primary Care Provider: Alda Robin V Hospital Course Hospital Course: Induction of labor via cervical ripening, , desires discharge at 24 hrs Home Meds and New Rx's Prescriptions: No Action prenat.vits,patricio,ddo-pmlx-xirwh Tablet 1 tab PO DAILY RF: 0 Discharge Instructions Additional Instructions: Please keep your 2 and 6 week appointments. Call for any concerns or questions. Please notify the supervisor publications production if you begin to feel depressed beyond what you consider temporary baby blues that resolve with improved sleeping. Stand Alone Forms: NB Instructions, BC Post Vaginal Deliver Activity:: Activity as Tolerated Equipment/Supplies:: No Equipment Needed Diet:: Normal Diet Discharge Orders Discharge Orders: Discharge Order (Routine); Ordered 04/29/21 Ordered By: Caryn Horvath OB:DS Summary Summary Vaginal Delivery Method: Spontaneaous Episiotomy Description: None Laceration Description: Other (vaginal floor) Laceration Extension: First Degree Contraception Discussed Contraception Discussed: Yes Contraceptive Plan: Control Pill/Patch, Gender-Baby A: Female weight: 8 lb 10.627 oz Status at Discharge Functional status at discharge: independent ambulation Overall status at discharge: patient is progressing back to baseline Mental Status: mental status grossly normal Speech and Movement: speech and movement normal and speech clear Mood: congruent mood Affect: normal affect Exam Physical Exam Vital signs: Temp Pulse Resp BP Pulse Ox 97.5 F L 82 16 115/73 97 04/29/21 09:12 04/29/21 09:12 04/29/21 09:12 04/29/21 09:12 04/29/21 09:12 Constitutional Constitutional: no acute distress HEENT Exam HEENT Exam: Normal Neck Exam Neck Exam: Normal Breast Exam Bilateral: Breast Exam: Normal and Soft Respiratory Exam Respiratory Exam: Normal Cardiovascular Exam Cardiovascular Exam: Normal Abdominal Exam Abdomen: Other Fundal Exam Fundus: Below Umbilicus and Firm Rectal Exam Rectal Exam: Normal Exam Perineum: Intact and Normal Extremities Exam Extremity Exam: Normal Back/Spine/Pelvis Exam Back Exam: Normal Skin Exam Skin Exam: Normal Neurological Exam Neurological Exam: Normal Psychiatric Exam Psychiatric Exam: Normal (pt relates hx of depression but denies depression today) [facility] Medical History (Updated 04/29/21 @ 10:07 by Caryn Horvath) Encounter for induction of labor GBS (group B Streptococcus carrier), +RV culture, currently Large for dates affecting management of mother Lipoma of left heel removed as child . Open fracture of right wrist Post-dates Family History (Updated 09/24/20 @ 09:04 by Sallie Vizcarra CNM) Mother Ulcerative colitis Brother Depression Social History Smoking/Tobacco Use Status: Never Smoking risk assessment performed?: Yes Alcohol Intake: former Drug use: Never Substance use type: does not use Do you feel safe at home: Yes Do you feel safe in your relationship?: Yes Female Reproductive History Menstrual control method: none History History 1 Para 0 Hx # Term Pregnancies 0 Multiple births 0 Hx # Pregnancies 0 Ectopic pregnancies 0 AB induced 0 Hx Number of Living Children 0 AB spontaneous 0 DS: Data Vitals/I&O Vitals and I&O: Vital Signs Temperature 97.5 F L 04/29/21 09:12 Pulse 82 04/29/21 09:12 Pulse Rhythm Regular 04/29/21 09:12 Respiratory Rate 16 04/29/21 09:12 Respiratory Depth Normal 04/28/21 07:30 Blood Pressure 115/73 04/29/21 09:12 Blood Pressure Mean 87 04/29/21 09:12 Pulse Oximetry 97 04/29/21 09:12 Pain Level 8 04/29/21 09:03 Comment 04/28/21 12:45 Intake & Output 04/28/21 04/29/21 04/29/21 23:59 11:59 23:59 Intake Total 434.766 / 2631.366 Output Total 250 / 450 300 / 300 Balance 184.766 / 2181.366 -300 / -300 Intake: IV 434.766 / 2631.366 Output: Urine 150 / 350 300 / 300 Emesis 100 / 100 Other: Urine Color Yellow Yellow Urine Appearance Clear Clear Urine Odor None None Voiding Methods Toilet Toilet Data Completed and Pending Labs on day of discharge: Labs from last 24 hours 04/29/21 06:16 WBC 16.05 H RBC 3.42 L Hgb 10.1 L Hct 30.6 L MCV 89.5 MCH 29.5 MCHC 33.0 RDW 14.0 Plt Count 175 MPV 10.1
== END 2021-04-29 18:00 | disposition home or self-care (01) | DRG 807 ==
PROVIDERS: Admitting Provider Advanced Practice Midwife; PCP Family Medicine; Visit Provider Advanced Practice Midwife
DX: O48.0 Post-term pregnancy (principal); Z37.0 Single live birth; Z3A.41 41 weeks gestation of pregnancy; O99.824 Streptococcus B carrier state complicating childbirth; O36.63X0 Maternal care for excessive fetal growth, third trimester, not applicable or unspecified; O69.89X0 Labor and delivery complicated by other cord complications, not applicable or unspecified; O70.0 First degree perineal laceration during delivery
CPT/HCPCS: 36415; 85027; 86850; 86900; 86901; 87635; 59200; J2210; J2405; J2540; J2590; J3490

== ENCOUNTER 2022-06-27 15:55 | Outpatient (REF) | payer OTHER, MEDICAID, SELFPAY | END 2022-06-27 15:56 | disposition home or self-care (01) | LOC: LBN 15:55 | PROVIDERS: PCP Family Medicine; Visit Provider Family Medicine | DX: N39.0 Urinary tract infection, site not specified (principal) | CPT/HCPCS: 87077; 87086; 87186 ==

== ENCOUNTER 2024-04-14 09:53 | Outpatient (REF) | payer OTHER, SELFPAY ==
--- NOTE | 2024-04-14 09:20 | PAPFT_PTH ---
PATIENT: Suyapa Hillman LOC: [facility] U#:[id number] AGE/SX: 23/F ROOM: RE04/14/[address]: Jodie Mccarthy NP : 2000 BED: DIS: 04/14/2024 SPEC #: [id number] RECD: 04/14/24 13:16 STATUS: ANDRES RERakel #: [id number] SPIKE: 04/14/24 09:[address]: Jodie Mccarthy NP DEPT: [facility] Cytology RECD BY: Kim Suarez ENTERED: 04/14/24 13:17 SP TYPE: PAPFT OTHR DR: Alda Robin V Tissues: 1 - CX/ENDOCX FOR PAP SMEARS Procedures: PAP THIN PREP/[facility] Screening HPV DNA PROBE Comments: [id number] (HPV 16 & 18/45)
== END 2024-04-14 09:54 | disposition home or self-care (01) ==
LOC: LBN 09:53
PROVIDERS: PCP Family Medicine; Visit Provider Nurse Practitioner Women's Health
DX: Z01.419 Encounter for gynecological examination (general) (routine) without abnormal findings (principal); Z32.00 Encounter for pregnancy test, result unknown; R63.5 Abnormal weight gain; E66.9 Obesity, unspecified; Z30.41 Encounter for surveillance of contraceptive pills; N87.9 Dysplasia of cervix uteri, unspecified
CPT/HCPCS: 88142; 87624

== ENCOUNTER 2024-04-15 03:20 | Outpatient (CLI) | payer OTHER, SELFPAY ==
[2024-04-15 07:43] LABS: HCT 40.2 % (36.0-46.0); HGB 13.2 g/dL (11.2-15.7); MCH 27.8 pg (27.0-33.0); MCHC 32.8 % (32.0-36.0); MCV 85 fL (80-95); MPV 9.7 fL (8.0-11.0); Platelet Count 257 10^3/uL (130-400); RBC 4.75 10^6/uL (3.93-5.22); RDW 12.6 % (11.7-14.6); RDW-SD 38.9 fL; WBC 9.13 10^3/uL (4.4-10.8)
[2024-04-15 07:55] LABS: Hemoglobin A1C 5.3 % (<5.7)
[2024-04-15 08:09] LABS: ALT 20 U/L (14-59); AST 16 U/L (15-37); Albumin 3.1 g/dL (3.4-5.0); Alkaline Phosphatase 110 U/L (46-116); BUN 10 mg/dL (7-18); Bilirubin, Total 0.25 mg/dL (0.2-1.0); CREATININE 0.8 mg/dL (0.55-1.02); Calcium 8.8 mg/dL (8.5-10.1); Calculated LDL 130 mg/dL (<100); Chloride 108 mmol/L (98-107); Cholesterol 203 mg/dL (<200); Glucose 99 mg/dL (74-106); HDL Cholesterol 42 mg/dL (40-60); Potassium 4.3 mmol/L (3.5-5.1); Sodium 144 mmol/L (136-145); TSH (W/Ref FT4) 0.98 uIU/mL (0.36-3.74); Total Protein 7.4 g/dL (6.4-8.2); Triglyceride 157 mg/dL (<150)
== END 2024-04-15 03:21 | disposition home or self-care (01) ==
LOC: LBO 03:21
PROVIDERS: PCP Family Medicine; Visit Provider Nurse Practitioner Women's Health
DX: Z01.419 Encounter for gynecological examination (general) (routine) without abnormal findings (principal); R63.5 Abnormal weight gain
CPT/HCPCS: 36415; 80053; 80061; 85027; 83036; 84443